=== PATIENT | male | born 1950 | race Hispanic/Latino ===

== ENCOUNTER 2018-07-07 09:52 | Emergency (ER) | payer BC ==
[2018-07-07 09:52] VITALS: BMI 30.7
[2018-07-07 10:01] VITALS: RESP 18; TEMP 98.1
[2018-07-07] MEDS ORDERED: Lidocaine 1%/Epinephrine 1:100000 30 ml vial IJ STA (10:14)
[2018-07-07] MEDS ORDERED: Silver Nitrate Topical - Stick ONE (10:22)
[2018-07-07 10:35] LABS: BASO % 0.4 % (0.0-2.0); EOS # 0.4 K/uL (0.0-0.7); EOS % 5.4 % (0.0-4.0); HEMOGLOBIN 14.7 g/dL (12.0-18.0); MEAN CORPUSCULAR HEMOGLOBIN 29.1 pg (27.0-31.0); MEAN CORPUSCULAR HGB CONC 33.1 g/dL (33.0-37.0); MEAN PLATELET VOLUME 7.7 fL (7.2-11.7); MONO # 0.5 K/uL (0.0-0.8); MONO % 6.9 % (0.0-10.0); NEUT # 4.9 K/uL (1.8-7.0); NEUT % 62.3 % (50.0-75.0); NRBC % 0.1 % (0.0-2.0); RBC 5.04 Mil/uL (4.40-5.90); WHITE BLOOD COUNT 7.9 K/uL (4.8-10.8)
[2018-07-07] MEDS ORDERED: Silver Nitrate Topical - Stick TOP ONE (10:40)
[2018-07-07 10:43] LABS: PROTHROMBIN TIME 11.2 SECONDS (9.7-12.2)
[2018-07-07 10:44] LABS: ALB/GLOB RATIO 1.4 (1.0-2.1); ALBUMIN 5.1 g/dL (3.5-5.0); ALT/SGPT 37 U/L (21-72); AST/SGOT 28 U/L (17-59); BLOOD UREA NITROGEN 13 mg/dL (9-20); GFR NON-AFRICAN AMERICAN > 60
--- NOTE | 2018-07-07 10:48 | C.PDOC ---
History Of Present Illness 67 y/o male,w/PMhx of HTN, hyperlipidemia, and COPD, presents to the ER complaining of tongue bleeding which has been present for the past 3 days. Patient states that he has bleeding in a small region on the center of the tongue. Patient reports that the bleeding is persistent. He notes that he is taking Aspirin. Denies having fever, chills, and rash. Time Seen by Provider: 07/07/18 10:02 Chief Complaint (Nursing): Dental Pain History Per: Patient History/Exam Limitations: no limitations Onset/Duration Of Symptoms: Days Current Symptoms Are (Timing): Still Present Severity: Moderate Past Medical History Reviewed: Historical Data, Nursing Documentation, Vital Signs Vital Signs: Last Vital Signs Temp 98.1 F 07/07/18 09:58 Pulse 96 H 07/07/18 09:58 Resp 18 07/07/18 09:58 BP 163/79 H 07/07/18 09:58 Pulse Ox 96 07/07/18 09:58 - Medical History PMH: COPD, HTN, Hypercholesterolemia - [facility] Procedures CLOSED ENDOSCOPIC BIOPSY OF LARGE INTESTINE (10/11/04) COLONOSCOPY (11/21/01) Family History: States: Unknown Family Hx - Social History Hx Alcohol Use: No Hx Substance Use: No Review Of Systems Except As Marked, All Systems Reviewed And Found Negative. Constitutional: Negative for: Fever, Chills ENT: Positive for: Other (tongue bleeding) Skin: Negative for: Rash Physical Exam - Physical Exam Appears: Non-toxic, No Acute Distress Skin: Warm, Dry, Other (small 2 mm ulcer to the center of the tongue, active bleeding) Head: Atraumatic, Normacephalic Eye(s): bilateral: Normal Inspection Nose: Normal Oral Mucosa: Moist Neck: Supple Chest: Symmetrical Cardiovascular: Rhythm Regular Respiratory: Normal Breath Sounds, No Rales, No Rhonchi, No Wheezing Neurological/Psych: Oriented x3, Normal Speech ED Course And Treatment - Laboratory Results Result Diagrams: 07/07/18 10:19 07/07/18 10:19 Lab Results: PT 11.2 SECONDS (9.7-12.2) 07/07/18 10:19 INR 1.0 07/07/18 10: APTT 34 SECONDS (21-34) 07/07/18 10:19 Total Bilirubin 0.7 mg/dL (0.2-1.3) 07/07/18 10:19 AST 28 U/L (17-59) 07/07/18 10:19 ALT 37 U/L (21-72) 07/07/18 10:19 Alkaline Phosphatase 69 U/L (38-126) 07/07/18 10:19 Total Protein 8.8 g/dL (6.3-8.3) H 07/07/18 10:19 Albumin 5.1 g/dL (3.5-5.0) H 07/07/18 10:19 Globulin 3.7 gm/dL (2.2-3.9) 07/07/18 10:19 Albumin/Globulin Ratio 1.4 (1.0-2.1) 07/07/18 10:19 O2 Sat by Pulse Oximetry: 96 (RA) Pulse Ox Interpretation: Normal Medical Decision Making Medical Decision Making: Plan: --Labs small area of bleeding stoped with application of chemical cautery. plts, pt ptt normal. adivse pt to f/u outpt for further eval for hemangioma vs malignancy w/u . advise the medical center treturn precauiotns. Disposition - Disposition Referrals: Jl Rao MD [Staff Provider] - Disposition: HOME/ ROUTINE Disposition Time: 11:30 Condition: GOOD Additional Instructions: please see specialist. return to any er with worsening symptoms or concerns . Instructions: Tongue Cancer, How to Care for Your Mouth and Teeth Forms: [facility] (Telugu) - Clinical Impression Clinical Impression: Hemorrhage of tongue - Scribe Statement The provider has reviewed the documentation as recorded by the Cornelius Auguste Provider Attestation: All medical record entries made by the Yazibbriseyda were at my direction and personally dictated by me. I have reviewed the chart and agree that the record accurately reflects my personal performance of the history, physical exam, medical decision making, and the department course for this patient. I have also personally directed, reviewed, and agree with the discharge instructions and disposition.
[2018-07-07 11:25] VITALS: BP 132/71; PULSE 89
[2018-07-07 15:39] VITALS: O2SAT 96
== END 2018-07-07 11:30 | disposition home or self-care (01) ==
LOC: C.ER 09:52
DX: K14.8 Other diseases of tongue (principal)